=== PATIENT | female | born 1975 | race African-American/Black ===

== ENCOUNTER 2018-01-26 18:48 | Emergency (ER) | payer OTHER ==
[~2018-01-26] VITALS: Ht 165.1 cm; Wt 84.2 kg
[2018-01-26 19:51] LABS: BASOPHILS # (AUTO) 0.04 x10^3/uL (0-0.1); BASOPHILS % (AUTO) 1 % (0-1); EOSINOPHILS # (AUTO) 0.21 x10^3/uL (0-0.4); EOSINOPHILS % (AUTO) 3 % (1-7); LYMPHOCYTES # (AUTO) 2.89 x10^3/uL (1-3.4); LYMPHOCYTES % (AUTO) 35 % (22-44); MD NO; MEAN CORPUSCULAR HEMOGLOBIN 33.2 pg (27.0-34.8); MEAN CORPUSCULAR HGB CONC 34.5 g/dL (32.4-35.8); MEAN CORPUSCULAR VOLUME 96.1 fL (80-100); MEAN PLATELET VOLUME 9.9 fL (7.4-10.4); MONOCYTES # (AUTO) 1.13 x10^3/uL (0.2-0.8); MONOCYTES % (AUTO) 14 % (2-9); NEUTROPHILS # (AUTO) 3.97 x10^3/uL (1.8-6.8); NEUTROPHILS % (AUTO) 48 % (42-75); PLATELET COUNT 175 x10^3/uL (130-400); RED BLOOD COUNT 4.78 x10^6/uL (3.82-5.3); RED CELL DISTRIBUTION WIDTH 13.4 % (9.6-15.2)
[2018-01-26 19:58] LABS: MICROSCOPIC AUTO
[2018-01-26] MEDS ORDERED: ONDANSETRON ODT 4 MG PO ONE (20:00)
[2018-01-26] MEDS ORDERED: MORPHINE SULFATE 4 MG/ML, 1ML IVPush PRN (20:00)
[2018-01-26] MEDS ORDERED: SODIUM CHLORIDE FLUSH 10ML SYR IVF ONE (20:00)
[2018-01-26 20:02] LABS: ALANINE AMINOTRANSFERASE 133 U/L (12-78); ALBUMIN 3.2 g/dL (3.4-5.0); ANION GAP 8 mmol/L (5-15); CALCIUM 8.6 mg/dL (8.5-10.1); CHLORIDE 110 mmol/L (98-107); CREATININE 0.96 mg/dL (0.55-1.02)
[2018-01-26 20:06] LABS: BILIRUBIN,TOTAL 0.7 mg/dL (0.2-1.0); TOTAL PROTEIN 7.5 g/dL (6.4-8.2)
[2018-01-26 20:07] LABS: CULTURE INDICATED? YES
[2018-01-26 20:07] LABS: ALKALINE PHOSPHATASE 67 U/L (45-117)
[2018-01-26] MEDS ORDERED: MORPHINE SULFATE 4 MG/ML, 1ML ONE (20:15)
[2018-01-26] MEDS ORDERED: ONDANSETRON 2MG/ML, 2ML ONE (20:15)
[2018-01-26] MEDS ORDERED: ONDANSETRON ODT 4 MG ONE (20:27)
[2018-01-26 21:46] LABS: CULTURE INDICATED? YES; MICROSCOPIC INDICATED
[2018-01-26] MEDS ORDERED: KETOROLAC 30 MG/1 ML ONE (22:38)
[2018-01-26 23:00] VITALS: BP 118/75
[2018-01-26] MEDS ORDERED: KETOROLAC 30 MG/1 ML IVPush ONE (23:00)
== END 2018-01-26 23:04 | disposition home or self-care (01) ==
LOC: ED 21:02
DX: N13.5 Crossing vessel and stricture of ureter without hydronephrosis (principal)
CPT/HCPCS: 36415; 74176; 80053; 81001; 84703; 85025; 87086; 96374; 96375; 99285; J1885; Q0162